=== PATIENT | male | born 1970 | race African-American/Black ===

== ENCOUNTER 2016-03-10 08:19 | Emergency (ER) | payer OTHER ==
[~2016-03-10] VITALS: Ht 180.3 cm; Wt 83.9 kg
[2016-03-10 08:24] VITALS: BP 126/73
[2016-03-10] MEDS ORDERED: MOBIC15 M1 PO (08:41)
[2016-03-10] MEDS ORDERED: CYCLOBENZAPRINE10 M1 PO (08:41)
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
== END 2016-03-10 08:47 ==
LOC: ERH 08:19
DX: S16.1XXA Strain of muscle, fascia and tendon at neck level, initial encounter (principal); V89.2XXA Person injured in unspecified motor-vehicle accident, traffic, initial encounter